=== PATIENT | male | born 1990 | race Caucasian/White ===

== ENCOUNTER 2022-10-05 17:31 | Emergency (ER) | payer OTHER ==
[~2022-10-05] VITALS: Ht 188 cm; Wt 90.2 kg
== END 2022-10-05 21:37 | disposition home or self-care (01) ==
LOC: ED 17:31
DX: R10.31 Right lower quadrant pain (principal)
CPT/HCPCS: 36415; 74177; 80053; 81003; 83690; 85025; 99284-25

== ENCOUNTER 2023-02-27 08:10 | Emergency (ER) | payer OTHER ==
[~2023-02-27] VITALS: Ht 188 cm; Wt 91.9 kg
--- OUTSIDE RECORDS SUMMARY | ~2023-02-27 | XMS | Continuity of Care Document ---
Demographics + + + | Address | [address] | | | [place] [address] | + + + | Preferred Language | Unknown | + + + | Marital Status | Never | + + + | Congregational Affiliation | Unknown | + + + | Race | White | + + + | Ethnic Group | Not or | + + + Author + + + | Author | [facility] | + + + | Organization | [facility] | + + + | Address | [address] | | | [place] [address] | + + + | Phone | | + + + Care Team Providers + + + + | Care Veterinary Medical Officer Name | Role | Phone | + + + + Unavailable | Unavailable | + + + + Unavailable | Unavailable | + + + + Allergies No information. Encounters No information. Functional Status No information. Immunizations No information. Medications No information. Problems + + + + | date | description | facility | + + + + | 2022-10-05 00:00 | Abdominal pain | [facility] | + + + + Procedures No information. Results/Labs +--------+--------+ +---------+--------+---------+ | test | date | facility | value | unit | notes | +--------+--------+ +---------+--------+---------+ + + | Result panel 1 | + + + + + +--------+ + + | | 2022-10-05 | [facility] | 11.0 | (missing) | (missing) | | (unavailable | [facility]43[facility]07 [facility] | | | | + + + +--------+ + + + + | Result panel 2 | + + + + + +--------+ + + | | 2022-10-05 | [facility] | 52.2 | (missing) | (missing) | | (unavailable | [facility]43:07 [facility] | | | | + + + +--------+ + + + + | Result panel 3 | + + + + + +--------+ + + | | 2022-10-05 | [facility] | 37.1 | (missing) | (missing) | | (unavailable | [facility]43:07 [facility] | | | | + + + +--------+ + + + + | Result panel 4 | + + + + + +-------+ + + | | 2022-10-05 | [facility] | 7.9 | (missing) | (missing) | | (unavailable | [facility]43:07 [facility] | | | | + + + +-------+ + + + + | Result panel 5 | + + + + + +-------+ + + | | 2022-10-05 | [facility] | 2.3 | (missing) | (missing) | | (unavailable | [facility]43:07 [facility] | | | | + + + +-------+ + + + + | Result panel 6 | + + + + + +-------+ + + | | 2022-10-05 | [facility] | 0.5 | (missing) | (missing) | | (unavailable | [facility]43[facility]07 [facility] | | | | + + + +-------+ + + + + | Result panel 7 | + + + + + +--------+ + + | | 2022-10-05 | [facility] | 5.17 | (missing) | (missing) | | (unavailable | [facility]43:07 [facility] | | | | + + + +--------+ + + + + | Result panel 8 | + + + + + +------+---------+ + | | 2022-10-05 | [facility] | 92 | mg/dL | (missing) | | (unavailable | [facility]43:07 [facility] | | | | + + + +------+---------+ + + + | Result panel 9 | + + + + + +------+---------+ + | | 2022-10-05 | [facility] | 14 | mg/dL | (missing) | | (unavailable | [facility]43:07 [facility] | | | | + + + +------+---------+ + + + | Result panel 10 | + + + + + +--------+---------+ + | | 2022-10-05 | [facility] | 0.79 | mg/dL | (missing) | | (unavailable | [facility]43:07 [facility] | | | | + + + +--------+---------+ + + + | Result panel 11 | + + + + + +--------+ + + | | 2022-10-05 | [facility] | 16.1 | (missing) | (missing) | | (unavailable | [facility]43:07 [facility] | | | | + + + +--------+ + + + + | Result panel 12 | + + + + + +-------+ + + | | 2022-10-05 | [facility] | 123 | (missing) | (missing) | | (unavailable | 19[facility]43:07 [facility] | | | | + + + +-------+ + + + + | Result panel 13 | + + + + + +---------+ + + | | 2022-10-05 | [facility] | 17.72 | (missing) | (missing) | | (unavailable | [facility]43:07 [facility] | | | | + + + +---------+ + + + + | Result panel 14 | + + + + + +-------+ + + | | 2022-10-05 | [facility] | 140 | (missing) | (missing) | | (unavailable | [facility]43:07 [facility] | | | | + + + +-------+ + + + + | Result panel 15 | + + + + + +-------+ + + | | 2022-10-05 | [facility] | 3.5 | (missing) | (missing) | | (unavailable | [facility]43:07 [facility] | | | | + + + +-------+ + + + + | Result panel 16 | + + + + + +-------+ + + | | 2022-10-05 | [facility] | 103 | (missing) | (missing) | | (unavailable | [facility]43:07 [facility] | | | | + + + +-------+ + + + + | Result panel 17 | + + + + + +------+ + + | | 2022-10-05 | [facility] | 26 | (missing) | (missing) | | (unavailable | [facility]43:07 [facility] | | | | + + + +------+ + + + + | Result panel 18 | + + + + + +--------+ + + | | 2022-10-05 | [facility] | 14.5 | (missing) | (missing) | | (unavailable | [facility]43:07 [facility] | | | | + + + +--------+ + + + + | Result panel 19 | + + + + + +-------+---------+ + | | 2022-10-05 | [facility] | 9.3 | mg/dL | (missing) | | (unavailable | [facility]43:07 [facility] | | | | + + + +-------+---------+ + + + | Result panel 20 | + + + + + +-------+ + + | | 2022-10-05 | [facility] | 8.5 | (missing) | (missing) | | (unavailable | [facility]43:07 [facility] | | | | + + + +-------+ + + + + | Result panel 21 | + + + + + +-------+ + + | | 2022-10-05 | [facility] | 4.4 | (missing) | (missing) | | (unavailable | [facility]43:07 [facility] | | | | + + + +-------+ + + + + | Result panel 22 | + + + + + +--------+ + + | | 2022-10-05 | [facility] | 46.8 | (missing) | (missing) | | (unavailable | [facility]43:07 [facility] | | | | + + + +--------+ + + + + | Result panel 23 | + + + + + +-------+ + + | | 2022-10-05 | [facility] | 4.1 | (missing) | (missing) | | (unavailable | [facility]43:07 [facility] | | | | + + + +-------+ + + + + | Result panel 24 | + + + + + +--------+ + + | | 2022-10-05 | [facility] | 1.07 | (missing) | (missing) | | (unavailable | [facility]43:07 [facility] | | | | + + + +--------+ + + + + | Result panel 25 | + + + + + +-------+ + + | | 2022-10-05 | [facility] | 0.4 | (missing) | (missing) | | (unavailable | [facility]43:07 [facility] | | | | + + + +-------+ + + + + | Result panel 26 | + + + + + +------+ + + | | 2022-10-05 | [facility] | 20 | (missing) | (missing) | | (unavailable | [facility]43:07 [facility] | | | | + + + +------+ + + + + | Result panel 27 | + + + + + +------+ + + | | 2022-10-05 | [facility] | 29 | (missing) | (missing) | | (unavailable | [facility]43:07 [facility] | | | | + + + +------+ + + + + | Result panel 28 | + + + + + +-------+ + + | | 2022-10-05 | [facility] | 109 | (missing) | (missing) | | (unavailable | [facility]43:07 [facility] | | | | + + + +-------+ + + + + | Result panel 29 | + + + + + +------+ + + | | 2022-10-05 | [facility] | 47 | (missing) | (missing) | | (unavailable | [facility]43:07 [facility] | | | | + + + +------+ + + + + | Result panel 30 | + + + + + +--------+ + + | | 2022-10-05 | [facility] | 90.5 | (missing) | (missing) | | (unavailable | [facility]43:07 [facility] | | | | + + + +--------+ + + + + | Result panel 31 | + + + + + +--------+ + + | | 2022-10-05 | [facility] | 31.1 | (missing) | (missing) | | (unavailable | [facility]43:07 [facility] | | | | + + + +--------+ + + + + | Result panel 32 | + + + + + +--------+ + + | | 2022-10-05 | [facility] | 34.4 | (missing) | (missing) | | (unavailable | [facility]43:07 [facility] | | | | + + + +--------+ + + + + | Result panel 33 | + + + + + +--------+ + + | | 2022-10-05 | [facility] | 12.8 | (missing) | (missing) | | (unavailable | [facility]43:07 [facility] | | | | + + + +--------+ + + + + | Result panel 34 | + + + + + +-------+ + + | | 2022-10-05 | [facility] | 257 | (missing) | (missing) | | (unavailable | [facility]43:07 [facility] | | | | + + + +-------+ + + + + | Result panel 35 | + + + + + + + + + | | 2022-10-05 | [facility] | YELLOW | (missing) | (missing) | | (unavailable | [facility]46:07 [facility] | | | | + + + + + + + + + | Result panel 36 | + + + + + +---------+ + + | | 2022-10-05 | [facility] | CLEAR | (missing) | (missing) | | (unavailable | [facility]46:07 [facility] | | | | + + + +---------+ + + + + | Result panel 37 | + + + + + + + + + | | 2022-10-05 | [facility] | NEGATIVE | (missing) | (missing) | | (unavailable | [facility]46:07 [facility] | | | | + + + + + + + + + | Result panel 38 | + + + + + + + + + | | 2022-10-05 | [facility] | NEGATIVE | (missing) | (missing) | | (unavailable | [facility]46:07 [facility] | | | | + + + + + + + + + | Result panel 39 | + + + + + + + + + | | 2022-10-05 | [facility] | NEGATIVE | (missing) | (missing) | | (unavailable | [facility]46:07 [facility] | | | | + + + + + + + + + | Result panel 40 | + + + + + +---------+ + + | | 2022-10-05 | [facility] | 1.020 | (missing) | (missing) | | (unavailable | 19:46:07 [facility] | | | | + + + +---------+ + + + + | Result panel 41 | + + + + + + + + + | | 2022-10-05 | [facility] | NEGATIVE | (missing) | (missing) | | (unavailable | 19:46:07 [facility] | | | | + + + + + + + + + | Result panel 42 | + + + + + +-------+ + + | | 2022-10-05 | [facility] | 7.0 | (missing) | (missing) | | (unavailable | 19:46:07 [facility] | | | | + + + +-------+ + + + + | Result panel 43 | + + + + + + + + + | | 2022-10-05 | [facility] | NEGATIVE | (missing) | (missing) | | (unavailable | [facility]:46:07 [facility] | | | | + + + + + + + + + | Result panel 44 | + + + + + + + + + | | 2022-10-05 | [facility] | NORMAL | (missing) | (missing) | | (unavailable | [facility]:46:07 [facility] | | | | + + + + + + + + + | Result panel 45 | + + + + + + + + + | | 2022-10-05 | [facility] | NEGATIVE | (missing) | (missing) | | (unavailable | 19:46:07 [facility] | | | | + + + + + + + + + | Result panel 46 | + + + + + + + + + | | 2022-10-05 | [facility] | NEGATIVE | (missing) | (missing) | | (unavailable | [facility]46:07 [facility] | | | | + + + + + + + Social History + + + + | date | description | facility | + + + + | 2022-10-05 00:00 | Unknown if ever smoked | [facility] | + + + + Vital Signs + + + +---------+ | date | measurement | value | units | + + + +---------+ | 2022-10-05 00:00 | BMI | 25.5 | kg/m2 | + + + +---------+ | 2022-10-05 00:00 | BP_diastolic | 98 | mmHg | + + + +---------+ | 2022-10-05 00:00 | BP_systolic | 140 | mmHg | + + + +---------+ | 2022-10-05 00:00 | heart_rate | 87 | /min | + + + +---------+ | 2022-10-05 00:00 | height_metric | 187.96 | cm | + + + +---------+ | 2022-10-05 00:00 | height_standard | 74 | in | + + + +---------+ | 2022-10-05 00:00 | o2_saturation | 99 | % | + + + +---------+ | 2022-10-05 00:00 | respiration_rate | 16 | /min | + + + +---------+ | 2022-10-05 00:00 | temperature_metric | 36.56 | C | | | | | | + + + +---------+ | 2022-10-05 00:00 | | 97.8 | F | | | temperature_standar | | | | | d | | | + + + +---------+ | 2022-10-05 00:00 | weight_metric | 90.2 | kg | + + + +---------+ | 2022-10-05 00:00 | weight_standard | 198.86 | lb | + + + +---------+"
--- OUTSIDE RECORDS SUMMARY | ~2023-02-27 | XMS | Continuity of Care Document ---
Demographics + + + | Address | [address] | | | [place] [address] | + + + | Preferred Language | Unknown | + + + | Marital Status | Never | + + + | Muslim Affiliation | Unknown | + + + | Race | White | + + + | Ethnic Group | Not or | + + + Author + + + | Author | [facility] | + + + | Organization | [facility] | + + + | Address | [address] | | | [place] [address] | + + + | Phone | | + + + Care Team Providers + + + + | Care Percussion Instrument Repairer Name | Role | Phone | + [...] | 2022-10-05 00:00 | Abdominal pain | [facility] | + + + + Procedures [...] | Unknown if ever smoked | [facility] | + + + + Vital [...]
[2023-02-27 10:16] VITALS: BP 134/98
== END 2023-02-27 10:16 | disposition home or self-care (01) ==
LOC: ED 08:10
DX: S40.011A Contusion of right shoulder, initial encounter (principal); S54.01XA Injury of ulnar nerve at forearm level, right arm, initial encounter; V47.5XXA Car driver injured in collision with fixed or stationary object in traffic accident, initial encounter
CPT/HCPCS: 73030